=== PATIENT | male | born 1930 | race African-American/Black ===

== ENCOUNTER 2016-11-26 07:26 | Emergency (ER) | payer OTHER ==
[~2016-11-26] VITALS: Ht 172.7 cm; Wt 77.5 kg
[2016-11-26] MEDS ORDERED: CYCL30DR OP (07:31)
[2016-11-26] MEDS ORDERED: ASPI-1159 PO (07:31)
[2016-11-26] MEDS ORDERED: METO-539 PO (07:31)
[2016-11-26] MEDS ORDERED: MIRT15TA6 PO (07:31)
[2016-11-26] MEDS ORDERED: LATA2.5D2 OP (07:31)
[2016-11-26] MEDS ORDERED: ANUCORT (07:31)
[2016-11-26] MEDS ORDERED: GABA-531 PO (07:31)
[2016-11-26 10:49] VITALS: BP 148/82
== END 2016-11-26 11:00 | disposition home or self-care (01) ==
LOC: ER 07:43
DX: S27.898A Other injury of other specified intrathoracic organs, initial encounter (principal); S22.9XXA Fracture of bony thorax, part unspecified, initial encounter for closed fracture; W04.XXXA Fall while being carried or supported by other persons, initial encounter; Y93.E1 Activity, personal bathing and showering; Y92.89 Other specified places as the place of occurrence of the external cause; M10.9 Gout, unspecified; M47.9 Spondylosis, unspecified; M85.80 Other specified disorders of bone density and structure, unspecified site; G62.9 Polyneuropathy, unspecified; H40.9 Unspecified glaucoma; Y99.8 Other external cause status; Z91.81 History of falling; Z88.0 Allergy status to penicillin
CPT/HCPCS: 72100; 99284

== ENCOUNTER 2018-10-29 03:58 | Emergency (ER) | payer OTHER ==
[~2018-10-29] VITALS: Ht 182.9 cm; Wt 105.0 kg
[~2018-10-29 03:58] MED LIST: ANUCORT; ASPI-1393 PO; CYCL30DR OP; GABA-531 PO; LATA2.5D2 OP; METO-539 PO; MIRT15TA6 PO
[2018-10-29] MEDS ORDERED: TRAMADOL 50MG TABLET PO ONE (07:00)
[2018-10-29 11:16] LABS: CLARITY URINE CLEAR (CLEAR); COLOR URINE YELLOW (YELLOW); KETONES URINE NEGATIVE (NEGATIVE); LEUKOCYTE ESTERASE URINE NEGATIVE (NEGATIVE); NITRITE URINE NEGATIVE (NEGATIVE); OCCULT BLOOD URINE NEGATIVE (NEGATIVE); PH URINE 5.5 (4.5-8.0); PROTEIN URINE NEGATIVE (NEGATIVE); UROBILINOGEN URINE 0.2 E.U./dL (0.2-1.0)
[2018-10-29 11:51] VITALS: BP 149/84
== END 2018-10-29 11:52 | disposition home or self-care (01) ==
LOC: ER 03:58
DX: R07.81 Pleurodynia (principal); M79.18 Myalgia, other site; F51.5 Nightmare disorder; G47.9 Sleep disorder, unspecified; H40.9 Unspecified glaucoma; L29.9 Pruritus, unspecified; I10 Essential (primary) hypertension; G62.9 Polyneuropathy, unspecified; Z88.0 Allergy status to penicillin; W06.XXXA Fall from bed, initial encounter; Y93.89 Activity, other specified; Y92.89 Other specified places as the place of occurrence of the external cause; Y99.8 Other external cause status
CPT/HCPCS: 71101; 72100; 99284